=== PATIENT | female | born 1945 | race Caucasian/White ===

== ENCOUNTER 2018-11-09 22:06 | Observation (INO) | payer OTHER ==
[2018-11-09] MEDS ORDERED: NS 1,000 ML IV ONE ×3 (22:16→23:17)
--- NOTE | 2018-11-09 22:16 | EDPHY ---
H & P Stated Complaint: syncopal episode an hour ago no trauma- feeling generalized weakness now Time Seen by Provider: 11/09/18 22:16 HPI/ROS: HPI CHIEF COMPLAINT: Syncope while seated. HISTORY OF PRESENT ILLNESS: 72-year-old female, history of hyperlipidemia, presents emergency room after she had a syncopal episode at dinner tonight. She was out eating a big dinner with her family and felt very lightheaded flushed and diaphoretic. She then had a syncopal episode witnessed by her family members states there is a brief period 3-5 minutes of unresponsiveness. Her eyes were open. No seizure activity. She then slowly came back around. [place] nauseous but did not vomit. Denies chest pain or shortness of breath. Did have lightheadedness. No palpitations. States she typically does not eat dinner this late or this larger meal, additionally had half a glass of alcohol tonight. She arrives to the emergency room was slightly low blood pressure. Otherwise no complaints. Denies chest pain or shortness of breath Past Medical History: Hyperlipidemia, GERD Past Surgical History: No recent surgery Social History: Denies drugs alcohol tobacco daily. Family History: Noncontributory ROS REVIEW OF SYSTEMS: 10 Systems were reviewed and negative with the exception of the elements mentioned in the history of present illness. Exam Constitutional nontoxic no acute distress triage nursing summary reviewed, vital signs reviewed, awake/alert. Hypotensive at triage Eyes normal conjunctivae and sclera, EOMI, PERRLA. HENT normal inspection, atraumatic, moist mucus membranes, no epistaxis, neck supple/ no meningismus, no raccoon eyes. Respiratory clear to auscultation bilaterally, normal breath sounds, no respiratory distress, no wheezing. Cardiovascular rate normal, regular rhythm, no murmur, no edema, distal pulses normal. Gastrointestinal soft, non-tender, no rebound, no guarding, normal bowel sounds, no distension, no pulsatile mass. Genitourinary no CVA tenderness. Musculoskeletal no midline vertebral tenderness, full range of motion, no calf swelling, no tenderness of extremities, no meningismus, good pulses, neurovascularly intact. Skin pink, warm, & dry, no rash, skin atraumatic. Neurologic awake, alert and oriented x 3, AAOx3, moves all 4 extremities equally, motor intact, sensory intact, CN II-XII intact, normal cerebellar, normal vision, normal speech. Psychiatric normal mood/affect. Heme/Lymph/Immune no lymphadenopathy. Differential diagnosis includes but is not limited to: ACS, atypical chest pain , pneumothorax, pneumonia, pulmonary embolism, aortic dissection, congestive heart failure, tumor, musculoskeletal pain, esophageal pain, GERD, peptic ulcer disease, pancreatitis Medical Decision Making: Plan for this patient IV establishment IV fluid bolus , check EKG, troponin, chest x-ray, electrolytes, urinalysis and re-evaluate. Re-evaluation: EKG interpretation by me on record in [employer] system. Impression time of EKG 2223, sinus bradycardia rate of 49, LVH present. No signs of acute ischemia. 7: Consult the hospitalist service agree for admission for syncope, dehydration. Here in emergency room I have not found any acute etiology of her syncopal episode. Her EKG is nonischemic. Is noted that she is bradycardic, hypotensive. She is getting her 2nd L fluid She does not appear ill. Plan for hospital admission. Source: Patient - Medical/Surgical History Hx Asthma: No Hx Chronic Respiratory Disease: No Hx Diabetes: No Hx Cardiac Disease: No Hx Renal Disease: No Hx Cirrhosis: No Hx Alcoholism: No Hx HIV/AIDS: No Hx Splenectomy or Spleen Trauma: No Other PMH: high cholesterol. gerd - Social History Smoking Status: Former smoker Constitutional: Initial Vital Signs Temperature (C) 36.5 C 11/09/18 22:12 Heart Rate 65 11/09/18 22:12 Respiratory Rate 16 11/09/18 22:12 Blood Pressure 84/59 L 11/09/18 22:12 O2 Sat (%) 97 11/09/18 22:12 O2 Delivery Mode Room Air Allergies/Adverse Reactions: No Known Allergies Allergy (Verified 06/30/16 14:17) Home Medications: Medication Instructions Recorded Protonix 11/09/18 SIMVASTATIN 11/09/18 Medical Decision Making - Diagnostics Imaging Results: Imaging Impressions Chest X-Ray 11/09/18 22:17 Impression: No active cardiopulmonary disease seen. - Data Points Laboratory Results: Laboratory Results 11/09/18 22:30 11/09/18 22:30 11/09/18 11/09/18 11/09/18 22:33 22:30 22:30 WBC RBC Hgb Hct MCV MCH MCHC RDW Plt Count MPV Neut % (Auto) Lymph % (Auto) Dent % (Auto) Eos % (Auto) Baso % (Auto) Nucleat RBC Rel Count Absolute Neuts (auto) Absolute Lymphs (auto) Absolute Monos (auto) Absolute Eos (auto) Absolute Basos (auto) Absolute Nucleated RBC Immature Gran % Immature Gran # PT INR APTT Turbidity Cancelled Sodium Cancelled 140 mEq/L mEq/L (135-145) Potassium Cancelled 3.6 mEq/L mEq/L (3.5-5.2) Chloride Cancelled 109 mEq/L mEq/L (97-110) Carbon Dioxide Cancelled 22 mEq/l mEq/l (22-31) Anion Gap Cancelled 9 mEq/L mEq/L (6-14) BUN Cancelled 21 mg/dL mg/dL (7-23) Creatinine Cancelled 1.3 mg/dL H mg/dL (0.6-1.0) Estimated GFR Cancelled 40 Glucose Cancelled 123 mg/dL H mg/dL (70-100) Calcium Cancelled 9.8 mg/dL mg/dL (8.5-10.4) Magnesium 2.0 mg/dL mg/dL (1.6-2.3) Total Bilirubin 0.5 mg/dL mg/dL (0.1-1.4) Conjugated Bilirubin 0.1 mg/dL mg/dL (0.0-0.5) Unconjugated Bilirubin 0.4 mg/dL mg/dL (0.0-1.1) AST 28 IU/L IU/L (14-46) ALT 31 IU/L IU/L (9-52) Alkaline Phosphatase 81 IU/L IU/L (38-126) POC Troponin I 0.00 ng/mL ng/mL (0.00-0.08) NT-Pro-B Natriuret Pep 60 pg/mL pg/mL (0-125) Total Protein 7.2 g/dL g/dL (6.3-8.2) Albumin 4.4 g/dL g/dL (3.5-5.0) Specimen Hemolysis Cancelled 11/09/18 11/09/18 22:30 22:30 WBC 8.32 10^3/uL 10^3/uL (3.80-9.50) RBC 4.45 10^6/uL 10^6/uL (4.18-5.33) Hgb 14.3 g/dL g/dL (12.6-16.3) Hct 40.8 % % (38.0-47.0) MCV 91.7 fL fL (81.5-99.8) MCH 32.1 pg pg (27.9-34.1) MCHC 35.0 g/dL g/dL (32.4-36.7) RDW 12.5 % % (11.5-15.2) Plt Count 312 10^3/uL 10^3/uL (150-400) MPV 8.7 fL fL (8.7-11.7) Neut % (Auto) 57.2 % % (39.3-74.2) Lymph % (Auto) 28.5 % % (15.0-45.0) Dent % (Auto) 10.1 % % (4.5-13.0) Eos % (Auto) 3.1 % % (0.6-7.6) Baso % (Auto) 0.7 % % (0.3-1.7) Nucleat RBC Rel Count 0.0 % % (0.0-0.2) Absolute Neuts (auto) 4.76 10^3/uL 10^3/uL (1.70-6.50) Absolute Lymphs (auto) 2.37 10^3/uL 10^3/uL (1.00-3.00) Absolute Monos (auto) 0.84 10^3/uL H 10^3/uL (0.30-0.80) Absolute Eos (auto) 0.26 10^3/uL 10^3/uL (0.03-0.40) Absolute Basos (auto) 0.06 10^3/uL 10^3/uL (0.02-0.10) Absolute Nucleated RBC 0.00 10^3/uL 10^3/uL (0-0.01) Immature Gran % 0.4 % % (0.0-1.1) Immature Gran # 0.03 10^3/uL 10^3/uL (0.00-0.10) PT 13.9 SEC SEC (12.0-15.0) INR 1.05 (0.83-1.16) APTT 25.8 SEC SEC (23.0-38.0) Turbidity Sodium Potassium Chloride Carbon Dioxide Anion Gap BUN Creatinine Estimated GFR Glucose Calcium Magnesium Total Bilirubin Conjugated Bilirubin Unconjugated Bilirubin AST ALT Alkaline Phosphatase POC Troponin I NT-Pro-B Natriuret Pep Total Protein Albumin Specimen Hemolysis Medications Given: Discontinued Medications Sodium Chloride (Ns) 1,000 mls @ 0 mls/hr IV EDNOW ONE; Wide Open PRN Reason: Protocol Stop: 11/09/18 22:17 Last Admin: 11/09/18 22:29 Dose: 1,000 mls Sodium Chloride (Ns) 1,000 mls @ 0 mls/hr IV ONCE ONE PRN Reason: Wide Open Stop: 11/09/18 23:14 Last Admin: 11/09/18 23:16 Dose: 1,000 mls Point of Care Test Results: Chemistry 11/09/18 22:33 POC Troponin I 0.00 ng/mL ng/mL (0.00-0.08) Departure - Departure Disposition: [facility] ([place], [place]) Inpatient Acute Clinical Impression: Dehydration, Bradycardia Syncope Qualifiers: Syncope type: unspecified Qualified Code(s): R55 - Syncope and collapse Condition: Fair
[2018-11-09 22:39] LABS: PLATELET COUNT 312 10^3/uL (150-400)
[2018-11-09 22:47] LABS: INR 1.05 (0.83-1.16); PROTIME(PATIENT) 13.9 SEC (12.0-15.0)
[2018-11-09] MEDS ORDERED: ACETAMINOPHEN 325 MG TAB PO PRN (23:47)
[2018-11-09] MEDS ORDERED: ONDANSETRON DISINTEGRATING 4 MG TAB PO PRN (23:47)
[2018-11-09] MEDS ORDERED: ONDANSETRON 4 MG/2 ML VIAL IVP PRN (23:47)
--- NOTE | 2018-11-10 00:32 | PDGENHP ---
History and Physical - Chief Complaint Syncope - History of Present Illness 72 yo F w/ hx of HLD presents after syncopal episode. She was out having dinner with family when she experienced period of unresponsiveness while seated. This lasted 3-5 minutes. Family says she was slumped over to the left. She tells me she felt nauseous, flushed, and diaphoretic after regaining consciousness. There was no seizure like active noted and no post-ictal confusion. She denies chest pain or SOB. In the ED her BP has been low/normal and heart rate in the 50 's w/ sinus rhythm. She thinks waking up around 5 AM and having little to eat or drink today may have contributed. She currently denies symptoms. Case discussed with ED p physician Dr. Contreras; records reviewed and summarized above. History Information - Allergies/Home Medication List Allergies/Adverse Reactions: No Known Allergies Allergy (Verified 06/30/16 14:17) Home Medications: Protonix 11/09/18 [Last Taken Unknown] SIMVASTATIN 11/09/18 [Last Taken Unknown] I have personally reviewed and updated: family history, medical history - Past Medical History hyperlipidemia - Surgical History Additional surgical history: Benign facial tumor removal, L side - Family History Additional family history: Asked, denies. Adult daughter healthy in the room - Social History Smoking Status: Former smoker Review of Systems Review of Systems: ROS: 10pt was reviewed & negative except for what was stated in HPI & below Physical Exam Physical Exam: Temp Pulse Resp BP Pulse Ox 36.5 C 60 18 119/87 H 96 11/09/18 22:12 11/10/18 00:04 11/10/18 00:04 11/10/18 00:04 11/10/18 00:04 Constitutional: no apparent distress, not in pain Eyes: PERRL, EOMI Ears, Nose, Mouth, Throat: moist mucous membranes, no oral mucosal ulcers Cardiovascular: regular rate and rhythym, no murmur, rub, or gallop Respiratory: no respiratory distress, clear to auscultation Gastrointestinal: normoactive bowel sounds, soft, non-tender abdomen Skin: warm, normal color Musculoskeletal: full muscle strength, no muscle tenderness Neurologic: AAOx3, CN II-XII Intact Psychiatric: interacting appropriately, not anxious Lab Data & Imaging Review 11/09/18 22:30 11/09/18 22:30 WBC 8.32 10^3/uL (3.80-9.50) 11/09/18: RBC 4.45 10^6/uL (4.18-5.33) 11/09/18: Hgb 14.3 g/dL (12.6-16.3) 11/09/18: Hct 40.8 % (38.0-47.0) 11/09/18: MCV 91.7 fL (81.5-99.8) 11/09/18: MCH 32.1 pg (27.9-34.1) 11/09/18: MCHC 35.0 g/dL (32.4-36.7) 11/09/18: RDW 12.5 % (11.5-15.2) 11/09/18: Plt Count 312 10^3/uL (150-400) 11/09/18: MPV 8.7 fL (8.7-11.7) 11/09/18: Neut % (Auto) 57.2 % (39.3-74.2) 11/09/18: Lymph % (Auto) 28.5 % (15.0-45.0) 11/09/18: [place] % (Auto) 10.1 % (4.5-13.0) 11/09/18: Eos % (Auto) 3.1 % (0.6-7.6) 11/09/18: Baso % (Auto) 0.7 % (0.3-1.7) 11/09/18: Nucleat RBC Rel Count 0.0 % (0.0-0.2) 11/09/18: Absolute Neuts (auto) 4.76 10^3/uL (1.70-6.50) 11/09/18: Absolute Lymphs (auto) 2.37 10^3/uL (1.00-3.00) 11/09/18: Absolute Monos (auto) 0.84 10^3/uL (0.30-0.80) H 11/09/18: Absolute Eos (auto) 0.26 10^3/uL (0.03-0.40) 11/09/18 22:30 Absolute Basos (auto) 0.06 10^3/uL (0.02-0.10) 11/09/18 22:30 Absolute Nucleated RBC 0.00 10^3/uL (0-0.01) 11/09/18 22:30 Immature Gran % 0.4 % (0.0-1.1) 11/09/18: Immature Gran # 0.03 10^3/uL (0.00-0.10) 11/09/18 22:30 PT 13.9 SEC (12.0-15.0) 11/09/18:30 INR 1.05 (0.83-1.16) 11/09/18: APTT 25.8 SEC (23.0-38.0) 11/09/18 22: Turbidity Cancelled 11/09/18 22:30 Sodium 140 mEq/L (135-145) 11/09/18 22:30 Potassium 3.6 mEq/L (3.5-5.2) 11/09/18 22:30 Chloride 109 mEq/L (97-110) 11/09/18 22:30 Carbon Dioxide 22 mEq/l (22-31) 11/09/18 22:30 Anion Gap 9 mEq/L (6-14) 11/09/18 22:30 BUN 21 mg/dL (7-23) 11/09/18 22:30 Creatinine 1.3 mg/dL (0.6-1.0) H 11/09/18 22:30 Estimated GFR 40 11/09/18 22:30 Glucose 123 mg/dL (70-100) H 11/09/18 22:30 Calcium 9.8 mg/dL (8.5-10.4) 11/09/18 22: Magnesium 2.0 mg/dL (1.6-2.3) 11/09/18 22:30 Total Bilirubin 0.5 mg/dL (0.1-1.4) 11/09/18 22:30 Conjugated Bilirubin 0.1 mg/dL (0.0-0.5) 11/09/18 22:30 Unconjugated Bilirubin 0.4 mg/dL (0.0-1.1) 12/25/18 22:30 AST 28 IU/L (14-46) 11/09/18 22:30 ALT 31 IU/L (9-52) 11/09/18 22:30 Alkaline Phosphatase 81 IU/L (38-126) 11/09/18 22:30 POC Troponin I 0.00 ng/mL (0.00-0.08) 11/09/18 22:33 NT-Pro-B Natriuret Pep 60 pg/mL (0-125) 11/09/18 22:30 Total Protein 7.2 g/dL (6.3-8.2) 11/09/18 22:30 Albumin 4.4 g/dL (3.5-5.0) 11/09/18 22: Specimen Hemolysis Cancelled 11/09/18 22:30 Imaging Review: Imaging Impressions Chest X-Ray 11/09/18 22:17 Impression: No active cardiopulmonary disease seen. Visualized and Interpreted Chest x-ray results: Yes Chest X-Ray results: no infiltrate Visualized and Interpreted EKG results: Yes EKG Interpretation: Positive for: normal sinsus rhythm, T waves inversion (Lead III) Assessment & Plan Assessment: 72 yo F w/ HLD presents with syncope. Plan: 1. Syncope - Most likely vasovagal syncope noting nausea, diaphoresis, and flushing after regaining consciousness. It is a bit odd that this occurred while seated. She is mildly bradycardic so far while here but thus far this does not seem pathologic. I doubt this represents TIA or stroke noting brief duration and lack of focal neurologic symptoms. - Admit for observation - S/p 2 L IVF - Monitor on telemetry - Will obtain TTE for further evaluation 2. Elevated serum creatinine - Serum creatinine 1.3 on admission with unknown baseline. - Repeat BMP in the morning after IVF 3. HLD - Continue home medications pending reconciliation. Diet - Regular Code - Full Ppx - LMWH Dispo - Admit under observation
[2018-11-10 04:38] LABS: PLATELET COUNT 281 10^3/uL (150-400)
[2018-11-10] MEDS ORDERED: ENOXAPARIN 40 MG/0.4 ML SYR SC SCH (09:00)
--- NOTE | 2018-11-10 12:00 | ECHO ---
[email or web address] [address] [address] Main: [phone] Fax: Transthoracic Echocardiogram Name: JOHNSON JACKSON MR#: [id number] Study Date: 11/10/2018 Study Time: 10:11 AM Date of : 1945 Age: 72 year(s) Height: 167.6 cm (66 in.) Weight: 74.84 kg (165 lb.) BSA: 1.84 m2 Gender: Female Examination: Echo Indication: Cardiac: syncope Image Quality: Adequate Contrast: Requested by: Chandana Sue BP: 121 mmHg/74 mmHg Heart Rate: Rhythm: Indication: Cardiac: syncope Procedure Staff Ham Sawyer: Bree Deshpande RDCS Reading Physician: Shawn Munoz MD Requesting Provider: Conclusions: Normal size left ventricle. Borderline concentric LV hypertrophy. EF is 63 %. No regional wall motion abnormality. The left atrium is mildly dilated. The right atrium is mildly dilated. Mild mitral valve regurgitation is present. Mild aortic valve regurgitation is present. Mild tricuspid regurgitation is present. The pulmonary artery pressure is normal. Right ventricular systolic pressure measures 29mmHg. No pericardial effusion. No prior study for comparison. Measurements: Chambers Valvular Assessment AV/MV Valvular Assessment TV/PV Normal Normal Normal Name Value Range Name Value Range Name Value Range Ao Lizzeth (2D): 3.2 cm (1.4 cm-2.6 AV Vmax: 1.65 m/s (1 m/s-1.7 TR Vmax: 2.43 mm/s ( - ) cm) m/s) TR PGmax: 24 mmHg ( - ) IVSd (2D): 1.1 cm (0.6 cm-1.1 AV maxP mmHg ( - ) syst. PAP: 29 mmHg ( - ) cm) AV meanP mmHg ( - ) LVDd (2D): 4.4 cm (3.9 cm-5.3 HEIDI (VTI): 2.2 cm ( - ) cm) MV E Vmax: 0.67 m/s ( - ) LVDs (2D): 3.0 cm (2.1 cm-4 MV A Vmax: 0.81 m/s ( - ) cm) MV E/A: 0.83 ( - ) LVPWd (2D): 1.1 cm ( - ) MV PHT: 0.077 s ( - ) LVOTd 2.0 cm 2.0 cm mm MVA (PHT): 2.9 s ( - ) LVEF (BP): 63 % (>=55 %) Patient: JOHNSON JACKSON Study Date: 11/10/2018 Page 1 of 2 10:11 AM RVDd(2D): 4.1 cm (1.9 cm-3.8 cmmm) Continued Measurements: Chambers Valvular Assessment AV/MV Valvular Assessment TV/PV Name Value Name Value Name Value LADs: 3.9 cm MV DecTime: 250 m/s CVP (est.): 5 mmHg LADs Lon.7 cm MV E' Septal: 0.08 m/s LA Area: 19.9 cm2 MV E/E' Septal: 8.80 LA Volume: 67 ml MV E/E' Lateral: 7.00 LA Volume Index: 36.4 ml/m2 RA Area: 19.5 cm2 Additional Vessels Name Value Ao Ascendin.7 cm Inferior Vena Cava: 1.8 cm Findings: Left Ventricle: Normal size left ventricle. Borderline concentric LV hypertrophy. Normal global systolic LV function. EF is 63 %. No regional wall motion abnormality. Unable to assess diastolic dysfunction. Right Ventricle: Normal size right ventricle. Normal RV function. Left Atrium: The left atrium is mildly dilated. Right Atrium: The right atrium is mildly dilated. Mitral Valve: The mitral valve is normal in appearance. Mild mitral valve regurgitation is present. No mitral stenosis is present. Aortic Valve: The aortic valve is tri-leaflet. Mild aortic valve regurgitation is present. No aortic valve stenosis is present. Tricuspid Valve: The tricuspid valve is normal in appearance and function. Mild tricuspid regurgitation is present. The pulmonary artery pressure is normal. Right ventricular systolic pressure measures 29mmHg. Pulmonic Valve: The pulmonic valve is normal in appearance and function. There is no pulmonic regurgitation seen. Aorta: The aorta is normal. Normal size aortic root measuring 3.2 cm. Normal size ascending aorta measuring 3.7 cm. IVC: The IVC is normal sized. Pericardium: No pericardial effusion. No pleural effusion. (No Signature Object) Patient: JOHNSON JACKSON Study Date: 11/10/2018 Page 2 of 2 10:11 AM [id number]
[2018-11-10 12:04] VITALS: BP 126/72
--- NOTE | 2018-11-10 13:12 | ASDISCHSUM ---
Discharge Information Plan Status:Home with No Needs Medically Cleared to Leave:11/09/2018 Discharge Date:11/10/2018 01:10 PM CM D/C Disposition:Home, Routine, Self-Care ADT D/C Disposition:Home, Routine, Self-Care Projected Discharge Date:11/10/2018 01:10 PM Transportation at D/C: Discharge Delay Reason: Follow-Up Date:11/10/2018 01:10 PM Discharge Slot: Final Diagnosis: Placement Information Patient Contact Information Contact Name:JOSÉ Relationship:Daughter Address: Work Phone: City: [facility] Phone: State/[place] Temperature Management Code: Email: Financial Information Financial Class:Medicare Primary Plan Desc:MEDICARE OUTPATIENT Primary Plan Number:[id number] Secondary Plan Desc:[employer] Secondary Plan Number:[id number] Assessment Information LACE LACE Length of stay for Answers: Less than 1 day current admission Acuity / Level of Answers: No Care: Did the patient have an inpatient admission? Comorbidities - select Answers: Any tumor (including all that apply lymphoma or leukemia) # of Emergency department Answers: 1-2 visits in the last 6 months Score: 3 Date Signed: 11/10/2018 01:11 PM Electronically Signed By:Lizbeth Vega RN Intervention Information
[2018-11-10] MEDS ORDERED: PANTOPRAZOLE SODIUM 40 MG TAB PO SCH (18:00)
[2018-11-10] MEDS ORDERED: ATORVASTATIN CALCIUM 40 MG TAB PO SCH (18:00)
--- NOTE | 2018-11-10 20:03 | PDDCSUM ---
Discharge Summary Discharge Summary: Lizbeth Schuster is a 72 year old female admitted after suffering a syncopal episode at a local restaurant. She states that she didnt think she ate very well and then became faint while at a restaurant and briefly passed out. Upon arrival to the ER she was given IV fluids and she says that she felt markedly better. She had no focal deficits and felt completely better but was admitted to obtain an TTE and monitor on telemetry. She had no overight events on telemetry and her TTE was essentially normal with a normal LVEF. she was discharged home in good condition to follow up with her Pcp .
--- NOTE | 2018-11-10 20:05 | HOSPPROG ---
Hospitalist Progress Note Assessment/Plan: 1. Syncope - Most likely vasovagal syncope noting nausea, diaphoresis, and flushing after regaining consciousness. It is a bit odd that this occurred while seated. She is mildly bradycardic so far while here but thus far this does not seem pathologic. I doubt this represents TIA or stroke noting brief duration and lack of focal neurologic symptoms. - TTE normal today -Tele with no events. 2. Elevated serum creatinine - Serum creatinine 1.3 on admission with unknown baseline. - Repeat BMP in the morning after IVF 3. HLD - Continue home medications pending reconciliation. Diet - Regular Code - Full Ppx - LMWH Dispo - Admit under observation Subjective: patients symptoms resolved. No complaints. wants to go home. Objective: Vital Signs Temp Pulse Resp BP Pulse Ox 36.6 C 62 18 126/72 H 94 11/10/18 12:00 11/10/18 12:00 11/10/18 12:00 11/10/18 12:00 11/10/18 12:00 Laboratory Results 11/10/18 04:00 11/10/18 04:00 11/09/18 11/10/18 11/11/18 05:59 05:59 05:59 Intake Total 2100 Balance 2100 PT 13.9 SEC (12.0-15.0) 11/09/18 22:30 INR 1.05 (0.83-1.16) 11/09/18 22:30 - Physical Exam Constitutional: no apparent distress, appears nourished, not in pain Eyes: PERRL, anicteric sclera, EOMI Ears, Nose, Mouth, Throat: moist mucous membranes, hearing normal, ears appear normal, no oral mucosal ulcers Cardiovascular: regular rate and rhythym, no murmur, rub, or gallop Respiratory: no respiratory distress, no rales or rhonchi, clear to auscultation Gastrointestinal: normoactive bowel sounds, soft, non-tender abdomen, no palpable masses Genitourinary: no bladder fullness, no bladder tenderness, no renal bruits Skin: no rashes or abrasions, no fluctuance, no induration Musculoskeletal: full muscle strength, no muscle tenderness, normal joint ROM Neurologic: AAOx3, sensation intact bilaterally Psychiatric: interacting appropriately, not anxious, not encephalopathic, thought process linear Lymph, Heme, Immunologic: no cervical LAD, no supraclavicular LAD ICD10 Worksheet Patient Problems: Problems Problem Status Onset Bradycardia Acute Dehydration Acute Syncope Acute
== END 2018-11-10 13:10 | disposition home or self-care (01) ==
LOC: F2W 11-10 00:30
PROVIDERS: ADMIT Student in an Organized Health Care Education/Training Program; ATTEND Internal Medicine
DX: R55 Syncope and collapse (principal); E86.0 Dehydration; R00.1 Bradycardia, unspecified; R79.89 Other specified abnormal findings of blood chemistry; E78.5 Hyperlipidemia, unspecified; K21.9 Gastro-esophageal reflux disease without esophagitis; Z87.891 Personal history of nicotine dependence
CPT/HCPCS: 71045; 93306; 96360; 96361; 99285; G0378; 84484-ER

== ENCOUNTER → 2019-03-31 | Outpatient (CLI) | payer OTHER, MEDICARE | LOC: EMCIMAGING 10:00 | PROVIDERS: ATTEND Physician Assistant Medical | DX: Z13.820 Encounter for screening for osteoporosis (principal); M85.89 Other specified disorders of bone density and structure, multiple sites; Z78.0 Asymptomatic menopausal state ==